=== PATIENT | male | born 1955 | race Caucasian/White ===

== ENCOUNTER 2017-07-19 10:26 | Inpatient (IN) | payer OTHER ==
[~2017-07-19] VITALS: Ht 170.2 cm; Wt 106.0 kg
[2017-07-19] VITALS (15 sets, daily range): BP systolic 146–203; BP diastolic 75–95; PULSE 57–72; RESP 13–24; TEMP 97.9–98.9; O2SAT 91–98
[2017-07-19] MEDS ORDERED: NITROGLYCERIN 0.4 MG SL 25 TABS/BTL SL ONE (11:00)
[2017-07-19] MEDS ORDERED: ASPIRIN 81 MG CHEW TAB PO ONE (11:00)
[2017-07-19] MEDS ORDERED: SODIUM CHLORIDE 0.9% FLUSH 10 ML FLUSH IVF PRN (11:00)
--- NOTE | 2017-07-19 11:26 | RADRPT ---
EXAM DATE/TIME: 07/19/2017 11:21 [place] COMPARISON: No previous studies available for comparison. INDICATIONS : Chest pain. MEDICAL HISTORY : Hypertension. SURGICAL HISTORY : None. ENCOUNTER: Initial ACUITY: 1 day PAIN SCORE: 6/10 LOCATION: Bilateral chest FINDINGS: A single view of the chest demonstrates the lungs to be symmetrically aerated without evidence of mas s, infiltrate or effusion. The cardiomediastinal contours are unremarkable. Osseous structures are intact. CONCLUSION: Normal examination for a patient of this age. Mendez Romero MD on July 19, 2017 at 11:24 Board Certified Radiologist. This report was verified electronically.
[2017-07-19 11:47] LABS: AUTOMATED NEUTROPHIL # 3.9 TH/MM3 (1.8-7.7); BASOPHIL % 0.5 % (0.0-2.0); EOSINOPHIL # 0.3 TH/MM3 (0-0.4); EOSINOPHIL % 4.6 % (0.0-4.0); HEMATOCRIT 50.4 % (39.0-51.0); HEMO FLAGS DIFF FINAL; LYMPH % 34.3 % (9.0-44.0); LYMPHOCYTE # 2.5 TH/MM3 (1.0-4.8); MEAN CELL VOLUME 92.1 FL (80.0-100.0); MEAN CORPUSCULAR HEMOGLOBIN 31.7 PG (27.0-34.0); MEAN CORPUSCULAR HGB CONC 34.4 % (32.0-36.0); MONO % 6.9 % (0.0-8.0); NEUT % 53.7 % (16.0-70.0); PLATELET COUNT 144 TH/MM3 (150-450); RED BLOOD COUNT 5.47 MIL/MM3 (4.50-5.90); RED CELL DISTRIBUTION WIDTH 13.7 % (11.6-17.2); WHITE BLOOD COUNT 7.3 TH/MM3 (4.0-11.0)
[2017-07-19 11:57] LABS: APTT (PATIENT) 29.1 SEC (24.3-30.1)
[2017-07-19 12:12] LABS: BICARBONATE 25.9 MEQ/L (21.0-32.0); MAGNESIUM 2.3 MG/DL (1.5-2.5); POTASSIUM 4.3 MEQ/L (3.5-5.1)
[2017-07-19] MEDS ORDERED: NITROGLYCERIN-D5W 50 MG/250 ML 250 ML IV PRN (12:30)
[2017-07-19] MEDS ORDERED: HEPARIN SODIUM - IV 10,000 UNITS/10 ML VIAL IV ONE (12:30)
[2017-07-19] MEDS ORDERED: HEPARIN-D5W 25,000 U/250 ML 250 ML IV ONE (12:30)
--- NOTE | 2017-07-19 12:34 | PD ---
HPI Chief Complaint: Chest Pain Time Seen by Provider: 10:55 Travel History International Travel<30 days: No Contact w/Intl Traveler<30days: No Traveled to known affect area: No History of Present Illness HPI 62-year-old male came to the emergency room with history of substernal chest pain on and off for past couple days but worse since yesterday. There is also associated shortness of breath. Patient took his blood pressure last night and it was more than 200 systolic. His gave him one of her clonidine which made him feel better but then the symptoms came back and this time patient decided to go to see his primary care in [place] and be checked out. They did an EKG in [place] which looked different than his EKG from the past which was from 2010. Patient's blood pressure upon arrival was in the 200 systolic. He said his discomfort in his chest was subxiphoid with no radiation and 1-2 out of 10. Currently he was not short of breath. He is not on any medications and he is a heavy smoker. Pain comes even at rest. No associated syncopal episode, nausea vomiting or diaphoresis. Patient was seen at [place] where an EKG was done which looked different than his old EKG from 2010 and they called EMS and sent him to the emergency room. [facility] Past Medical History Narrative Medical List of his past medical, surgical, social and family history is reviewed from the nursing note. High Cholesterol: Yes Hypertension: Yes Tetanus Vaccination: < 5 Years Influenza Vaccination: No Past Surgical History Surgical History: No Previous Surgery Social History Alcohol Use: Yes Tobacco Use: Yes Substance Use: Yes (THC) Allergies-Medications (Allergen,Severity, Reaction): Coded Allergies: ampicillin (Verified Allergy, Unknown, 07/19/17) penicillin G (Verified Allergy, Unknown, 07/19/17) Comments List of his allergies reviewed from the nursing note. Reported Meds & Prescriptions Reported Meds & Active Scripts Active No Active Prescriptions or Reported Medications Narrative Medication List of his home medications reviewed from the nursing note. Review of Systems Except as stated in HPI: all other systems reviewed are Neg Cardiovascular: Positive: Chest Pain or Discomfort, Dyspnea on exertion Physical Exam Narrative GENERAL: Awake, alert, obese, moderate distress SKIN: Focused skin assessment warm/dry. HEAD: Atraumatic. Normocephalic. EYES: Pupils equal and round. No scleral icterus. No injection or drainage. ENT: No nasal bleeding or discharge. Mucous membranes pink and moist. NECK: Trachea midline. No JVD. CARDIOVASCULAR: Regular rate and rhythm. No murmur appreciated. RESPIRATORY: No accessory muscle use. Clear to auscultation. Breath sounds equal bilaterally. GASTROINTESTINAL: Abdomen soft, non-tender, nondistended. Hepatic and splenic margins not palpable. MUSCULOSKELETAL: No obvious deformities. No clubbing. No cyanosis. No edema. NEUROLOGICAL: Awake and alert. No obvious cranial nerve deficits. Motor grossly within normal limits. Normal speech. PSYCHIATRIC: Appropriate mood and affect; insight and judgment normal. Data Data Last Documented VS Vital Signs Date Time Temp Pulse Resp B/P (MAP) Pulse Ox O2 Delivery O2 Flow Rate FiO2 07/19/17 10:45 64 16 184/85 (118) 97 Nasal Cannula 2.00 07/19/17 10:28 98.7 Orders Orders Electrocardiogram (07/19/17 10:55) Basic Metabolic Panel (Bmp) (07/19/17 10:55) Ckmb (Isoenzyme) Profile (07/19/17 10:55) Complete Blood Count With Diff (07/19/17 10:55) Magnesium (Mg) (07/19/17 10:55) Prothrombin Time / Inr (Pt) (07/19/17 10:55) Act Partial Throm Time (Ptt) (07/19/17 10:55) Troponin I (07/19/17 10:55) Chest, Single Ap (07/19/17 10:55) Ecg Monitoring (07/19/17 10:55) Bilateral Bp Monitoring (07/19/17 10:55) Iv Access Insert/Monitor (07/19/17 10:55) Oximetry (07/19/17 10:55) Oxygen Administration (07/19/17 10:55) Aspirin Chew (Aspirin Chew) (07/19/17 11:00) Sodium Chloride 0.9% Flush (Ns Flush) (07/19/17 11:00) Nitroglycerin Sl (Nitrostat Sl) (07/19/17 11:00) Heparin Infusion CAITLYN.Q1H (07/19/17 12:20) Heparin Inj (Heparin Inj) (07/19/17 12:30) Heparin Inj (Heparin Inj) (07/19/17 18:30) Heparin Inj (Heparin Inj) (07/19/17 18:30) Heparin-D5w 25,000 U/250 Ml (Heparin-D5w (07/19/17 12:30) Act Partial Throm Time (Ptt) (07/19/17 12:20) Cbc No Diff, Includes Plts (07/19/17 12:20) Cbc No Diff, Includes Plts (07/22/17 06:00) Act Partial Throm Time (Ptt) (07/19/17 19:20) Occult Blood (Hemoccult) Stool (07/19/17 12:20) Nitroglycerin-D5w 50 Mg/250 Ml (Nitrogly (07/19/17 12:30) Admit To Inpatient (07/19/17 ) Vital Signs (Adult) CAITLYN.Q4H (07/19/17 12:39) Subsea Engineer / Telemetry CAITLYN.Q8H (07/19/17 12:39) Diet Npo (07/19/17 Lunch) Resp Oxygen David C Titrat 1-4 L (07/19/17 ) Sodium Chloride 0.9% Flush (Ns Flush) (07/19/17 12:45) Sodium Chloride 0.9% Flush (Ns Flush) (07/19/17 21:00) Inpatient Certification (07/19/17 ) Labs Laboratory Tests Test 07/19/17 11:00 White Blood Count 7.3 TH/MM3 Red Blood Count 5.47 MIL/MM3 Hemoglobin 17.3 GM/DL Hematocrit 50.4 % Mean Corpuscular Volume 92.1 FL Mean Corpuscular Hemoglobin 31.7 PG Mean Corpuscular Hemoglobin Concent 34.4 % Red Cell Distribution Width 13.7 % Platelet Count 144 TH/MM3 Mean Platelet Volume 7.6 FL Neutrophils (%) (Auto) 53.7 % Lymphocytes (%) (Auto) 34.3 % Monocytes (%) (Auto) 6.9 % Eosinophils (%) (Auto) 4.6 % Basophils (%) (Auto) 0.5 % Neutrophils # (Auto) 3.9 TH/MM3 Lymphocytes # (Auto) 2.5 TH/MM3 Monocytes # (Auto) 0.5 TH/MM3 Eosinophils # (Auto) 0.3 TH/MM3 Basophils # (Auto) 0.0 TH/MM3 CBC Comment DIFF FINAL Differential Comment Prothrombin Time 11.0 SEC Prothromb Time International Ratio 1.0 RATIO Activated Partial Thromboplast Time 29.1 SEC Blood Urea Nitrogen 15 MG/DL Creatinine 0.95 MG/DL Random Glucose 89 MG/DL Calcium Level 8.7 MG/DL Magnesium Level 2.3 MG/DL Sodium Level 138 MEQ/L Potassium Level 4.3 MEQ/L Chloride Level 106 MEQ/L Carbon Dioxide Level 25.9 MEQ/L Anion Gap 6 MEQ/L Estimat Glomerular Filtration Rate 80 ML/MIN Total Creatine Kinase 72 U/L Troponin I 0.13 NG/ML MDM Medical Decision Making Medical Screen Exam Complete: Yes Emergency Medical Condition: Yes Medical Record Reviewed: Yes Interpretation(s) Twelve-lead EKG was reviewed by me. Normal sinus rhythm, normal axis, anterior lateral T wave inversions which is new since 2011. Heart rate of 61 bpm. Differential Diagnosis ACS, non-STEMI, unstable angina, congestive heart failure Narrative Course 12:41 PM patient was initially given 2 baby aspirin and a sublingual nitroglycerin. Blood test results came back and troponin is elevated. I started him on heparin bolus and drip. However the blood pressure still elevated and I have started him on nitro drip as well. Patient should be admitted to the CICU. I discussed the case with the residents who have accepted the admission. I also discussed the case with Dr. Argueta from cardiology who is here evaluating the patient at this point. Critical Care Narrative Aggregate critical care time was 45 minutes. Time to perform other separately billable procedures was not included in the critical care time. My time did not include minutes spent treating any other patients simultaneously or on activities that did not directly contribute to the patient's treatment. The services I provided to this patient were to treat and/or prevent clinically significant deterioration that could result in: Non-STEMI, hypertensive emergency, heparin bolus and drip, nitro drip I provided critical care services requiring my management, as noted below: Chart data review, documentation time, medication orders and management, vital sign assessments/reviewing monitor data, ordering and reviewing lab tests, ordering and interpreting/reviewing x-rays and diagnostic studies, care of the patient and discussion of the patient with the admitting physicians. Procedures EKG Prior to Arrival: Yes Physician Communication Physician Communication Dr. Argueta Diagnosis Primary Impression: Non-STEMI (non-ST elevated myocardial infarction) Additional Impression: Hypertensive emergency Admitting Information Admitting Physician Requests: Admit Scripts No Active Prescriptions or Reported Meds Teresa Alexis MD Jul 19, 2017 12:34
[2017-07-19] MEDS ORDERED: SODIUM CHLORIDE 0.9% FLUSH 10 ML FLUSH IV FLUSH PRN ×3 (12:45→19:45)
[2017-07-19] MEDS ORDERED: METOPROLOL TARTRATE 25 MG TAB PO STA (12:53)
[2017-07-19] MEDS ORDERED: IOHEXOL 350 MG/ML 50 ML BTL (for Cath Lab) OTHER ONE (13:00)
[2017-07-19] MEDS ORDERED: HEPARIN SODIUM - IV 10,000 UNITS/10 ML VIAL IV PUSH ONE (13:00)
[2017-07-19] MEDS ORDERED: IOHEXOL 350 MG/ML 100 ML BTL (for Cath Lab) OTHER ONE (13:00)
[2017-07-19] MEDS ORDERED: amLODIPine BESYLATE 5 MG TAB PO ONE ×2 (13:00→19:45)
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
[2017-07-19] MEDS ORDERED: ACETAMINOPHEN 325 MG TAB PO PRN ×2 (13:30→19:45)
[2017-07-19] MEDS ORDERED: ALPRAZolam 0.25 MG TAB PO PRN (13:30)
[2017-07-19] MEDS ORDERED: ONDANSETRON HCL 4 MG/2 ML VIAL IV PUSH PRN (13:30)
[2017-07-19] MEDS ORDERED: DOCUSATE SODIUM 100 MG CAP PO PRN (13:30)
[2017-07-19] MEDS ORDERED: MORPHINE SULFATE 4 MG/ML INJ IV PUSH PRN ×2 (13:30→19:45)
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
[2017-07-19] MEDS: NITROGLYCERIN-D5W 50 MG/250 ML 250 ML IV PRN (14:00)
[2017-07-19] MEDS ORDERED: HEPARIN-D5W 25,000 U/250 ML 250 ML IV PRN (14:00)
[2017-07-19] MEDS ORDERED: HEPARIN-NS/PF INJ 1,000 ML ONE (16:57)
[2017-07-19] MEDS ORDERED: VERAPAMIL HCL 5 MG/2 ML VIAL ONE ×3 (17:01→18:47)
[2017-07-19] MEDS ORDERED: NITROGLYCERIN INJ 5 ML ONE (17:02)
[2017-07-19 17:08] LABS: BLOOD, URINE NEG (NEG); GLUCOSE,URINE NEG (NEG); KETONE, URINE NEG (NEG); NITRITE,URINE NEG (NEG); URINE COLOR LIGHT-YELLOW (YELLW/STRAW)
[2017-07-19 17:09] LABS: COMMENT (UR) CULT NOT INDICATED; CULTURE IF INDICATED CULT NOT INDICATED
[2017-07-19] MEDS ORDERED: MIDAZOLAM HCL 2 MG/2 ML VIAL ONE ×2 (17:24→18:20)
[2017-07-19] MEDS ORDERED: CHLORHEXIDINE GLUCONATE 2 % 1 PACK (2 CLOTHS)(extra cloths) TOPICAL PRN (17:30)
[2017-07-19] MEDS ORDERED: HEPARIN SODIUM - IV 10,000 UNITS/10 ML VIAL IV PRN ×2 (18:30)
[2017-07-19] MEDS ORDERED: TICAGRELOR 90 MG TAB PO ONE (18:34)
[2017-07-19] MEDS ORDERED: MORPHINE SULFATE 8 MG/ML INJ ONE ×2 (18:45→19:08)
[2017-07-19] MEDS ORDERED: HEPARIN SODIUM - IV 10,000 UNITS/10 ML VIAL IV PUSH PRN ×2 (19:00)
[2017-07-19] MEDS ORDERED: HEPARIN SODIUM - IV 10,000 UNITS/10 ML VIAL ONE (19:03)
--- NOTE | 2017-07-19 19:30 | CATHPROC ---
[email or web address] HIS Report Study Information Study Number Admission Scheduled Start Study Start [id number] Jul 19 2017 12:47PM 07/19/2017 Jul 19 2017 5:04PM [place] Service Cardiac Catheterization Admit Source Facility Department Emergency department [facility] - Vacuum Frame Operator Physician and Clinical Staff Initial Andre Bailey Post Partum Nurse Bonita Stroud BSRN Recorder Beth Forte,DARLENE Scrub Frantz Salgado RCIS(BS) Procedures Performed Procedure Location (Site) Vessel Name Coronary Angiograms LCA Left Coronary Coronary Angiograms RCA Right Coronary Coronary Angiograms LAD Prox Left Coronary Coronary Angiograms RCA Prox Right Coronary Drug Eluting Inflatio LAD Prox Left Coronary Drug Eluting Inflatio RCA Prox Right Coronary L Heart Cath LV Gram-hand inj. LV LV Ventricle PTCA LAD Prox Left Coronary PTCA ADD ON'S Wire insertion Radial (right) Radial Art. Equipment Time Mine Wedge Sawyer Description Size Mfg Part Number Used/Scraped WIRE, BALANCE MIDDLEWEIGHT [id number] 18:27 [employer] 190CM Used 190CM ([facility]) *[id number] TRANSDUCER, TRUWAVE [id number] 17:18 BUTT SERRANO * Used W/STOCKCOCK *[id number] [phone] *[id number] 534-545T *5526244 534-518T *7771820 534-618T *8851557 534-523T *6341322 534-623T *[id number] PIGTAIL ANG. 145 INFINITI [phone] CATHETER *[id number] 17:18 MALLINCKRODT SYRINGE, ANGIOMAT 150ML 150ML *[id number] Used 2SUB [id number] 17:18 [employer] PACK, CCL CUSTOM * Used *[id number] 17:18 IZEA SUPPORT, ARTERIAL ADULT 47287 *6105835 Used [id number] 17:18 [employer] PACER PEN, SKIN DUAL W/ RULER * Used *4774874 [id number] 18:31 [employer] BALLOON, 2.5 X 20MM EUPHORA 20MM Used *[id number] [id number] 19:02 [employer] STENT, 4.0 12MM JOSUÉ 4.0 12MM Used *3738084 [id number] 18:38 [employer] STENT, 4.0 22MM JOSUÉ 4.0 22MM Used *[id number] WIRE, COUGAR LS 190CM [id number] 18:18 [employer] 190CM Used (HYDROPHILIC) *[id number] [id number] 18:07 [employer]IC/AVE EBU 3.5 Z2 GUIDE CATHETER FR 6 Used *8947560 [id number] 18:23 [employer] 30 KANDICE INDEFLATOR Used *0154088 BAND, RADIAL COMPRESSION TR [id number] 19:09 [employer] 29CM Used LARGE 29 *[id number] [id number] 17:18 [employer] WIRE, EXCHANGE 260CM 3MMJ 260CM Used *8648744 [id number] 17:18 NAMIC MANIFOLD, 4 PORT * Used *[id number] 17:18 [employer]COMED OMNIPAQUE, 350 MG, 100ML 100ML [id number] Used 18:00 NYCOMED OMNIPAQUE, 350 MG, 150ML 150ML [id number] Used [id number] 17:18 [employer] BLANKET,WARM AIR CCL * Used *7386489 17:18 [employer] JELCO NEEDLE 4056 *3829099 Used SHEATH, FR6 TRANSRADIAL [id number] 17:18 TER[employer] Hunt FR 6 Used SLENDER 10CM *[id number] Equipment Model, Serial, Lot Number and Expiration Data Description Model Number Serial Number Lot Number Expiration Date STENT, 4.0 12MM JOSUÉ [id number] 04-21-2019 STENT, 4.0 22MM JOSUÉ [id number] 03-01-2019 History: Allergies Allergy Reaction ampicillin penicillin G History: Risk Factors Family History of Hypertension Dyslipidemia Previous [place] Previous Heart Failure Premature CAD Yes Yes No No No Prior Valve Prior PCI Prior CABG Surgery No No No Cerebrovascular Peripheral Artery Chronic Lung On Dialysis Diabetes Disease Disease Disease No Yes No No No History: Risk Factors Selection Items Current Smoker History: Symptoms/Diagnosis Selection Items Chest pain SOB History: Stress Tests Stress or Imaging Studies Performed No History: Other Disease Selection Items HTN Stroke History: Other Current Smoker Method Packs a Day Years Used Pack Years Yes Cigarettes 2 50 100 Regular Diet Yes Labs Hgb (g/dl) Hct (%) WBC (l/cumm) Platelets (thousands) 11.60-17.00 35.00-51.00 4.00-11.00 150.00-450.00 17.3 50.4 7.3 144 Glucose (mg/dl) BUN (mg/dl) Creatinine (mg/dl) BUN:Creatinine (1:x) 74.00-106.00 7.00-18.00 0.50-1.30 10.00-20.00 89 15 0.9 16.7 Na (meq/l) K (meq/l) 136.00-145.00 3.50-5.10 138 4.3 INR (PTT:PT) 0.90-1.10 1 Troponin I (ng/ml) CPK (u/l) CPK-MB (ng/ML) 0.02-0.05 26.00-308.00 0.50-3.60 0.13 72 Not Drawn Medication Medication Total Dose (Bolus/Oral) Medication Total Dosage/Unit 1% XYLOCAINE 5 mL BRILINTA 180 mg FENTANYL 100 mcg HEPARIN 8000 units MORPHINE 11 mg NTG (IC) 200 mcg RADIAL COCKTAIL 15 mL (Bolus) VERSED 3 mg Medications (Bolus/Oral) Medication Time Given Dosage/Unit Administered By Reason VERSED 07/19/2017 5:41:34 PM 2 mg Rittenour, Bonita 2 mg VERSED given in lab by Bonita Stroud BSRN in Left Antecubital via Peripheral IV. Ordered by Andre Argueta. 1% XYLOCAINE 07/19/2017 5:43:53 PM 5 mL Andre Argueta 5 mL 1% XYLOCAINE given in lab by Andre Argueta in Right Wrist via Subcutaneous. Ordered by Jesi Argueta. FENTANYL 07/19/2017 5:45:00 PM 50 mcg Rittenour, Bonita 50 mcg FENTANYL given in lab by Bonita Stroud BSRN in Left Antecubital via Peripheral IV. Ordered by Andre Argueta. Ntg 200mcg Verapamil 2.5mg Heparin RADIAL COCKTAIL 07/19/2017 5:58:39 PM 5 mL (Bolus) Andre Argueta 3000U 5 mL (Bolus) RADIAL COCKTAIL given in lab by Frantz Salgado RCIS(BS) in Right Radial via Radial. Us ing [Solution Name]. Ordered by Andre Argueta. Reason: Ntg 200mcg Verapamil 2.5mg. HEPARIN 07/19/2017 6:17:34 PM 5000 units Andre Argueta 5000 units HEPARIN given in lab by Andre Argueta in Left Antecubital via Peripheral IV. Ordered by Andre Sharpe. Ntg 200mcg Verapamil 2.5mg Heparin RADIAL COCKTAIL 07/19/2017 6:19:02 PM 5 mL (Bolus) Andre Argueta 2000U 5 mL (Bolus) RADIAL COCKTAIL given in lab by Andre Argueta in Right Wrist via Radial. Using [Solution Name]. Ordered by Andre Argueta. Reason: Ntg 200mcg Verapamil 2.5mg. VERSED 07/19/2017 6:21:11 PM 1 mg Rittenour, Bonita 1 mg VERSED given in lab by Bonita Stroud BSRN via Peripheral IV. Ordered by Andre Argueta. HEPARIN 07/19/2017 6:31:44 PM 1000 units Rittenour, Bonita 1000 units HEPARIN given in lab by Bonita Stroud BSRN in Left Antecubital via Peripheral IV. Orde red by Andre Argueta. NTG (IC) 07/19/2017 6:34:49 PM 200 mcg Andre Argueta 200 mcg NTG (IC) given in lab by Andre Argueta via Intra-coronary. Ordered by Andre Argueta. FENTANYL 07/19/2017 6:41:05 PM 50 mcg Franklyntenmeg, Bonita 50 mcg FENTANYL given in lab by Bonita Stroud BSRN in Left Antecubital via Peripheral IV. Ordered by Andre Argueta. MORPHINE 07/19/2017 6:46:01 PM 4 mg Rittenour, Bonita 4 mg MORPHINE given in lab by Bonita Stroud BSRN in Left Antecubital via Peripheral IV. Ordered b y Andre Argueta. Ntg 200mcg Verapamil 2.5mg Heparin RADIAL COCKTAIL 07/19/2017 6:50:01 PM 5 mL (Bolus) Andre Argueta 2000U 5 mL (Bolus) RADIAL COCKTAIL given in lab by Andre Argueta in Right Radial via Radial. Using [Solutio n Name]. Ordered by Andre Argueta. Reason: Ntg 200mcg Verapamil 2.5mg. BRILINTA 07/19/2017 6:51:30 PM 180 mg Rittenour, Bonita 180 mg BRILINTA given in lab by Bonita Stroud BSRN via Oral. Ordered by Andre Argueta. MORPHINE 07/19/2017 6:53:16 PM 4 mg Rittenour, Bonita 4 mg MORPHINE given in lab by Bonita Stroud BSRN in Left Antecubital via Peripheral IV. Ordered Andre Patel. HEPARIN 07/19/2017 7:03:52 PM 2000 units Bonita Stroud 2000 units HEPARIN given in lab by Bonita Stroud BSRN in Left Antecubital via Peripheral IV. Orde red by Andre Argueta. MORPHINE 07/19/2017 7:09:13 PM 3 mg Bonita Stroud 3 mg MORPHINE given in lab by Bonita Stroud BSRN in Left Antecubital via Peripheral IV. Ordered Andre Patel. Medication (Drip) Medication Time Given Dosage/Unit Concentration/Unit Diluent (ml) Solution NITROGLYCERIN DRIP 07/19/2017 5:05:05 PM 15 mcg/min 50 mg 250 D5W Patient arrived on 15 mcg/min NITROGLYCERIN DRIP in Left Antecubital via Peripheral IV. Pump/Drip Yusuf w = 4.5 ml/hr using D5W with a concentration of 50 mg in 250 ml. NITROGLYCERIN DRIP 07/19/2017 6:48:55 PM 40 mcg/min 50 mg 250 D5W 40 mcg/min NITROGLYCERIN DRIP given in lab by Bonita Stroud BSRN in Left Antecubital via Peripher al IV. Pump/Drip Flow = 12 ml/hr using D5W with a concentration of 50 mg in 250 ml. Ordered by Andre Argueta. gtt increased per Initial Case Assessment Cardiovascular HR Rhythm NIBP Chest Pain 65 regular 167/85 0 Edema Present Skin color Skin None Normal Warm Dry Circulatory - Right Pulses Dorsalis Pedis Posterior Tibial Femoral Brachial Radial 2 2 2 2 2 Scale (0,1,2,3,4,d) Scale (0,1,2,3,4,d) Circulatory - Lower Extremities Color Lower Right Color Lower Left Normal Normal Neurological State Oriented to time-place- Alert Moves all extremities person Respiration - General Respiration Rate SpO2 (%) O2 (lpm) (B/min) 15 98 2 Final Case Assessment Cardiovascular HR Rhythm NIBP Chest Pain 66 regular 179/96 0 Edema Present Skin color Skin None Normal Warm Dry Circulatory - Right Pulses Dorsalis Pedis Posterior Tibial Femoral Brachial Radial 2 2 2 2 2 Scale (0,1,2,3,4,d) Scale (0,1,2,3,4,d) Neurological State Oriented to time-place- Alert Moves all extremities person Respiration - General Respiration Rate SpO2 (%) O2 (lpm) (B/min) 14 92 2 Chronological Log Time Study Chronological Log 17:04:00 Patient arrived via Bed. 17:04:01 Patient Name, D.O.B, / Armband Verified By R.N. 17:04:02 Consent signed by the physician and the patient and verified by the Vacuum Frame Operator staff. 17:04:03 Verbal Stimulation=2 Physical Stimulation=2 Airway=2 Respiration=2 TOTAL=8. (0=absent, 1=li mited, 2=present) 17:04:41 Presedation assessment performed by Vacuum Frame Operator RN. 17:04:59 Patient has been NPO for More than 6Hrs. 17:05:00 Skin Breakdown-none per pt 17:05:02 Patient Warmer Placed on the Table. 17:05:03 Alana Prominences Protected 17:05:04 A # 18 IV was noted in the Antecubital (left). Grade = 0 Patient arrived on 15 mcg/min NITROGLYCERIN DRIP in Left Antecubital via Peripheral IV. Pump/Dr ip Flow = 4.5 ml/hr 17:05:05 using D5W with a concentration of 50 mg in 250 ml. 17:05:06 A # 20 IV was noted in the Upper Arm (left). Grade = 0 17:05:06 History and physical on the chart or being dictated. Assessment: Initial Case, HR=65 BPM, Rhythm=regular, RZFM=034/85 mmhg, Chest Pain=0, Edema=None , Color=Normal, Skin = Warm, Dry Right Pulses: Rafi Ped=2, Post Tib=2, Femoral=2, Brachial=2, Radial=2 17:05:07 Lower Right Extremities: Color=Normal Lower Left Extremities: Color=Normal Neurological: State=Alert, Ox3, MACIEL Respiration: Resp=15 B/min, SpO2=98 %, O2=2 lpm Vitals capture started with the following parameters, Patient=Adult, Interval=5 min, Initial Pr vjiarl=784 mmHg, 17:13:44 Deflation Rate=5 mmHg, Cuff placed on Left Arm 17:15:27 HR=67 bpm, QDXW=803/94 mmhg, Resp=13 B/min, Pain=0, Juan M=10, Melo=2 17:19:29 HR=62 bpm, LAZD=909/85 mmhg, Resp=18 B/min, Pain=0, Juan M=10, Melo=2 17:24:24 HR=62 bpm, XREF=241/99 mmhg, SpO2=98.0 %, Resp=15 B/min, Pain=0, Juan M=10, Melo=2 17:29:29 HR=66 bpm, YKZK=484/95 mmhg, SpO2=99.0 %, Resp=18 B/min, Pain=0, Juan M=10, Melo=2 17:34:32 HR=62 bpm, CUXG=051/93 mmhg, SpO2=98.0 %, Resp=11 B/min, Pain=0, Juan M=10, Melo=2 17:39:29 HR=61 bpm, GZME=104/98 mmhg, SpO2=98.0 %, Resp=13 B/min, Pain=0, Juan M=10, Melo=2 Time Out. Correct patient, correct procedure, correct physician, power injector loaded with con trast with surgical team 17:40:49 present. Time Out Concurred by MD and individual staff in procedure. 17:41:34 2 mg VERSED given in lab by Bonita Stroud BSRN in Left Antecubital via Peripheral IV. O rdered by Andre Argueta. 17:43:49 Pressure channel 1 zeroed. 17:43:52 Case Start 17:43:53 5 mL 1% XYLOCAINE given in lab by Andre Argueta in Right Wrist via Subcutaneous. Ordered by Andre Argueta. 17:44:30 HR=64 bpm, UTID=474/88 mmhg, SpO2=97.0 %, Resp=18 B/min, Pain=0, Juan M=10, Melo=2 50 mcg FENTANYL given in lab by Bonita Stroud BSRN in Left Antecubital via Peripheral IV. O rdered by Kendall, 17:45:00 Andre. 17:49:29 HR=62 bpm, HJVH=116/90 mmhg, SpO2=92.0 %, Resp=20 B/min, Pain=0, Juan M=10, Melo=2 17:54:28 Reference ECG taken 17:54:32 HR=60 bpm, BPQN=971/85 mmhg, SpO2=91.0 %, Resp=16 B/min, Pain=0, Juan M=10, Melo=2 17:57:38 Access site was Right Radial Artery. 5 mL (Bolus) RADIAL COCKTAIL given in lab by Frantz Salgado RCIS(YAZMIN) in Right Radial via Radi al. Using [Solution 17:58:39 Name]. Ordered by Andre Argueta. Reason: Ntg 200mcg Verapamil 2.5mg. A JL 3.5 INFINITI CATHETER FR 5 was advanced over a wire. OMNIPAQUE, 350 MG, 150ML 150ML was us ed for 17:59:44 injections. 18:00:12 HR=63 bpm, QGSU=921/89 mmhg, SpO2=96.0 %, Resp=19 B/min, Pain=0, Juan M=10, Melo=2 18:03:06 The LCA was injected and visualized at various angles. OMNIPAQUE, 350 MG, 150ML 150ML used . 18:05:13 HR=60 bpm, ULNZ=092/80 mmhg, SpO2=92.0 %, Resp=16 B/min, Pain=0, Juan M=10, Melo=2 18:06:01 Catheter was removed A JR 5.0 INFINITI CATHETER FR 5 was advanced over a wire. OMNIPAQUE, 350 MG, 150ML 150ML was us ed for 18:06:10 injections. Recorded Pressure: LV, HR=60, Condition=Condition 1 18:07:43 (Left Ventricle) LV 152/11/19 18:07:57 The LV was manually injected with 10 cc's and visualized. OMNIPAQUE, 350 MG, 150ML 150ML us ed. Recorded Pressure: LV, Ao, HR=61, Condition=Condition 1 18:08:28 (Left Ventricle) LV 152/14/22, (Aorta) Ao 152/66/105 Recorded Pressure: Ao, HR=61, Condition=Condition 1 18:09:13 (Aorta) Ao 156/75/107 18:09:36 HR=60 bpm, ALIJ=671/88 mmhg, SpO2=95.0 %, Resp=17 B/min, Pain=0, Juan M=10, Melo=2 18:13:11 Catheter was removed A AL 1 INFINITI CATHETER FR 5 was advanced over a wire. OMNIPAQUE, 350 MG, 150ML 150ML was used for 18:13:20 injections. 18:14:33 HR=63 bpm, GFEA=963/87 mmhg, SpO2=98.0 %, Resp=14 B/min, Pain=0, Juan M=10, Melo=2 18:15:12 The RCA was injected and visualized at various angles. OMNIPAQUE, 350 MG, 150ML 150ML used . 18:17:11 Catheter was removed 18:17:34 5000 units HEPARIN given in lab by Andre Argueta in Left Antecubital via Peripheral IV. Ord ered by Andre Argueta. 5 mL (Bolus) RADIAL COCKTAIL given in lab by Andre Argueta in Right Wrist via Radial. Using [So lution Name]. Ordered 18:19:02 by Andre Argueta. Reason: Ntg 200mcg Verapamil 2.5mg. 18:20:04 HR=62 bpm, RRRP=971/90 mmhg, SpO2=98.0 %, Resp=16 B/min, Pain=0, Juan M=10, Melo=2 A EBU 3.5 Z2 GUIDE CATHETER FR 6 was advanced over a wire. OMNIPAQUE, 350 MG, 150ML 150ML was u sed for 18:20:23 injections. 18:21:11 1 mg VERSED given in lab by Bonita Stroud BSRN via Peripheral IV. Ordered by Lacy Argueta. 18:22:53 OMNIPAQUE, 350 MG, 150ML 150ML and 30 KANDICE INDEFLATOR added. 18:23:15 Activated Clotting Time Drawn 18:24:33 HR=64 bpm, TEQX=356/86 mmhg, SpO2=93.0 %, Resp=20 B/min, Pain=0, Juan M=10, Melo=2 18:28:26 ACT (Normal Range 90-180) = 285 18:29:34 HR=59 bpm, NKYR=042/82 mmhg, SpO2=97.0 %, Resp=18 B/min, Pain=0, Juan M=10, Melo=2 18:29:46 Interventional wire has crossed the lesion 1000 units HEPARIN given in lab by Bonita Stroud BSRN in Left Antecubital via Peripheral IV . Ordered by Kendall, 18:31:44 Andre. A BALLOON, 2.5 X 20MM EUPHORA 20MM was inserted over WIRE, BALANCE MIDDLEWEIGHT 190CM (YOLANDE) 19 0CM 18:31:57 via the LAD Prox. A BALLOON, 2.5 X 20MM EUPHORA 20MM over a WIRE, BALANCE MIDDLEWEIGHT 190CM (YOLANDE) 190CM in the LAD 18:32:53 Prox was inflated using a 30 KANDICE INDEFLATOR at 14 kandice for 25 sec. A BALLOON, 2.5 X 20MM EUPHORA 20MM over a WIRE, BALANCE MIDDLEWEIGHT 190CM (YOLANDE) 190CM in the LAD 18:33:39 Prox was inflated using a 30 KANDICE INDEFLATOR at 14 kandice for 20 sec. 18:34:22 Balloon Removed. 18:34:35 HR=59 bpm, AUYM=468/92 mmhg, SpO2=98.0 %, Resp=15 B/min, Pain=0, Juan M=10, Melo=2 18:34:49 200 mcg NTG (IC) given in lab by Andre Argueta via Intra-coronary. Ordered by Andre Argueta . A STENT, 4.0 22MM JOSUÉ 4.0 22MM was advanced through a EBU 3.5 Z2 GUIDE CATHETER FR 6 over a WI RE, 18:37:39 BALANCE MIDDLEWEIGHT 190CM (YOLANDE) 190CM. A STENT, 4.0 22MM JOSUÉ 4.0 22MM was deployed using a 30 KANDICE INDEFLATOR at 14 atmospheres for 20 seconds in 18:39:01 the LAD Prox. 18:39:21 The LAD Prox was injected and visualized at various angles. contrast used. 18:39:38 Delivery device removed 18:40:15 HR=60 bpm, XRNU=311/93 mmhg, SpO2=97.0 %, Resp=13 B/min, Pain=0, Juan M=10, Melo=2 50 mcg FENTANYL given in lab by Bonita Stroud BSRN in Left Antecubital via Peripheral IV. O rdered by Kendall, 18:41:05 Andre. 18:43:30 Wire removed 18:45:28 Nitro gtt increased to 20mcg/min per MD 18:45:32 HR=61 bpm, RVZW=378/115 mmhg, SpO2=97.0 %, Resp=10 B/min, Pain=0, Juan M=10, Melo=2 4 mg MORPHINE given in lab by Bonita Stroud BSRN in Left Antecubital via Peripheral IV. Ord ered by Kendall, 18:46:01 Andre. 18:48:05 Catheter was removed 40 mcg/min NITROGLYCERIN DRIP given in lab by Bonita Stroud BSRN in Left Antecubital via Pe ripheral IV. 18:48:55 Pump/Drip Flow = 12 ml/hr using D5W with a concentration of 50 mg in 250 ml. Ordered by Andre Bradshaw. gtt increased per MD 18:49:44 HR=65 bpm, TWOY=875/112 mmhg, SpO2=96.0 %, Resp=14 B/min, Pain=0, Juan M=10, Melo=2 5 mL (Bolus) RADIAL COCKTAIL given in lab by Andre Argueta in Right Radial via Radial. Using [S olution Name]. 18:50:01 Ordered by Andre Argueta. Reason: Ntg 200mcg Verapamil 2.5mg. 18:51:30 180 mg BRILINTA given in lab by Bonita Stroud BSRN via Oral. Ordered by Andre Argueta. 4 mg MORPHINE given in lab by Bonita Stroud BSRN in Left Antecubital via Peripheral IV. Ord ered by Kendall, 18:53:16 Andre. 18:54:45 HR=63 bpm, LSNV=448/101 mmhg, SpO2=92.0 %, Resp=17 B/min, Pain=0, Juan M=10, Melo=2 A AL .75 GUIDE CATHETER FR 6 was advanced over a wire. OMNIPAQUE, 350 MG, 150ML 150ML was used for 18:54:52 injections. 18:57:22 Activated Clotting Time Drawn 18:58:20 The RCA Prox was injected and visualized at various angles. OMNIPAQUE, 350 MG, 150ML 150ML used. 18:59:42 HR=59 bpm, AXJZ=796/90 mmhg, SpO2=89.0 %, Resp=11 B/min, Pain=0, Juan M=10, Melo=2 18:59:59 A WIRE, CRYSTAL LS 190CM (HYDROPHILIC) 190CM was inserted via Radial (right). 19:00:46 Interventional wire has crossed the lesion A STENT, 4.0 12MM JOSUÉ 4.0 12MM was advanced through a AL .75 GUIDE CATHETER FR 6 over a WIRE, COUGAR LS 19:02:19 190CM (HYDROPHILIC) 190CM. 19:02:38 ACT (Normal Range 90-180) = 279 A STENT, 4.0 12MM JOSUÉ 4.0 12MM was deployed using a 30 KANDICE INDEFLATOR at 16 atmospheres for 40 seconds in 19:02:50 the RCA Prox. 2000 units HEPARIN given in lab by Bonita Stroud BSRN in Left Antecubital via Peripheral IV . Ordered by Kendall, 19:03:52 Powell. 19:04:18 Delivery device removed 19:05:02 The RCA was injected and visualized at various angles. contrast used. 19:05:24 HR=68 bpm, JYSE=233/90 mmhg, SpO2=91.0 %, Resp=13 B/min, Pain=0, Juan M=10, Melo=2 19:05:35 Wire removed 19:06:43 Catheter was removed 19:06:56 Case End Radial Compression Device Used. 13 mLs of air placed in BAND, RADIAL COMPRESSION TR LARGE 29 29 CM. Affected 19:08:33 hand 92 % O2 saturation. 3 mg MORPHINE given in lab by Bonita Stroud BSRN in Left Antecubital via Peripheral IV. Ord ered by Kendall, 19:09:13 Powell. 19:10:21 HR=72 bpm, KDPC=157/102 mmhg, SpO2=93.0 %, Resp=18 B/min, Pain=0, Juan M=10, Melo=2 19:13:07 Report called to floor. Spoke with DARLENE Campbell 19:14:41 HR=61 bpm, WZGV=239/96 mmhg, SpO2=92.0 %, Resp=11 B/min, Pain=0, Juan M=10, Melo=2 Assessment: Final Case, HR=66 BPM, Rhythm=regular, HAFD=437/96 mmhg, Chest Pain=0, Edema=None, Color=Normal, Skin = Warm, Dry 19:15:01 Right Pulses: Rafi Ped=2, Post Tib=2, Femoral=2, Brachial=2, Radial=2 Neurological: State=Alert, Ox3, MACIEL Respiration: Resp=14 B/min, SpO2=92 %, O2=2 lpm 19:15:36 No case complications noted. 19:15:37 Cine recording checked. 19:15:39 Bedside Report will be given. 19:15:47 A Left Heart Cath was performed. 19:19:42 HR=62 bpm, UATN=121/91 mmhg, Resp=15 B/min, Pain=0, Juan M=10, Melo=2 19:25:57 [facility] - Contrast Media Used In Study Contrast Total Opened (mL) Total Used (mL) Total Wasted (mL) Omnipaque 300 250 50 End Study - Maximum Contrast Load Max Contrast Load (mL) 694.4 End Study - Radiation Exposure Fluoro Time (minutes) 22.9 End Study - Patient Disposition Complications Transferred To Interventional Outcome No Critical Care Bed successful
[2017-07-19] MEDS: SODIUM CHLOR 0.9% 1000 ML INJ 1,000 ML IV SCH (19:32)
[2017-07-19] MEDS ORDERED: BACITRACIN OINT 0.9 GM PKT TOP ONE (19:45)
[2017-07-19] MEDS ORDERED: oxyCODONE/ACETAMINOPHEN 10 MG/325 MG TAB PO PRN (19:45)
[2017-07-19] MEDS ORDERED: ONDANSETRON HCL 4 MG/2 ML VIAL IVP PRN (19:45)
[2017-07-19] MEDS ORDERED: oxyCODONE/ACETAMINOPHEN 5 MG/325 MG TAB PO PRN (19:45)
[2017-07-19] MEDS ORDERED: MISC INFORMATION XX ONE (19:45)
--- NOTE | 2017-07-19 19:53 | MA ---
cc: MICHELLE SNYDER DATE: 07/19/2017 PROCEDURE PERFORMED Right radial arterial access, coronary angiography, left ventriculography, left heart catheterization, balloon angioplasty and stenting of the proximal left anterior descending artery, stenting of the proximal right coronary artery. DESCRIPTION OF PROCEDURE Patient was brought to the cardiac clinical lab assistant in the fasting state. The right wrist and right groin were prepped and draped in sterile fashion. Using ultrasound guidance a Terumo slender sheath was inserted in the right renal artery. Left coronary angiography was performed using a left 3.5 Kalli catheter. Right coronary angiography was unsuccessful with a right 4 Kalli but less successful with a left one Amplatz. Prior to this the right Kalli was also used for left ventriculography on pullback. I used a 6-Omani EBU guiding catheter to engage the left main, IV heparin was given. I crossed the LAD lesion with a BMW wire. I predilated with a 2.5 millimeter balloon and then stented it with a 4.0 x 22 millimeter Resolute stent. I inflated to 14 atmospheres. Angiography demonstrated an excellent result in the LAD. There was subacute closure of the first septal forest logistics manager branch. These usually come back and do not require intervention. I medicated his chest pain with morphine. I did angiography in multiple views showing a stent result was satisfactory. I then removed the guiding catheter and went in with an AL 0.75 left guiding catheter. I crossed the right coronary artery lesion with a CougarWire and then stented it with a 4.0 x 12 millimeter Resolute stent at 16 atmospheres. Angiography demonstrates an excellent result with no thrombus or dissection. The guiding catheter was then removed. The patient was loaded with Brilinta during the case. Will continue on aspirin 81 mg and Brilinta b.i.d., 90 mg. The sheath was removed with the Terumo band placed. There were no complications. FINDINGS HEMODYNAMICS: Left ventricular pressure is 152/14 with an end-diastolic pressure of 22. The aortic pressure is 156/75, over 107. There was no gradient during pullback from left ventricle to the aorta. LEFT VENTRICULOGRAPHY: Left ventriculography shows an ejection fraction about 50% with focal apical akinesis. CORONARY ANGIOGRAPHY: The left main coronary artery appears normal. It trifurcates into the LAD and ramus intermediate branch and the circumflex vessel. The LAD has a 99% eccentric ulcerated long proximal stenosis. The diagonal branch comes off distal to this and appears normal. The ramus intermediate branch has 40% proximal disease. Circumflex artery appears normal. The right coronary artery is dominant with a discrete 75% proximal stenosis. RESULTS OF INTERVENTION Following stenting of the proximal LAD, 0% residual stenosis has been achieved. There is subacute closure of the septal forest logistics manager branch which will probably come back spontaneously, it's on its own. Following stenting of the proximal right coronary artery, 0% residual stenosis has been achieved. CONCLUSION 1. Overall preserved LV function with apical akinesis to the non-STEMI. 2. Critical two-vessel coronary disease. 3. Successful drug-eluting stent implantation of both vessels. 4. The patient noted to be hypertensive and will need further adjustment of his blood pressure meds. MD CECILIA Lane/SHANDRA /7:19 PM /7:28 PM
[2017-07-19 20:40] LABS: HEMATOCRIT 50.6 % (39.0-51.0); MEAN CELL VOLUME 92.8 FL (80.0-100.0); MEAN CORPUSCULAR HEMOGLOBIN 31.4 PG (27.0-34.0); MEAN CORPUSCULAR HGB CONC 33.9 % (32.0-36.0); PLATELET COUNT 148 TH/MM3 (150-450); RED BLOOD COUNT 5.45 MIL/MM3 (4.50-5.90); RED CELL DISTRIBUTION WIDTH 13.4 % (11.6-17.2); REVIEW FLAG FINAL; WHITE BLOOD COUNT 10.1 TH/MM3 (4.0-11.0)
[2017-07-19 20:52] LABS: APTT (PATIENT) 73.4 SEC (24.3-30.1)
[2017-07-19] MEDS ORDERED: SODIUM CHLORIDE 0.9% FLUSH 10 ML FLUSH IV FLUSH SCH (21:00)
[2017-07-19] MEDS: SODIUM CHLORIDE 0.9% FLUSH 10 ML FLUSH IV FLUSH SCH ×2 (21:11)
[2017-07-19] MEDS: METOPROLOL TARTRATE 25 MG TAB PO SCH (21:11)
[2017-07-20] VITALS (15 sets, daily range): BP systolic 145–163; BP diastolic 73–80; PULSE 58–80; RESP 14–23; TEMP 98.4–98.8; O2SAT 94–100
[2017-07-20 02:27] LABS: AUTOMATED NEUTROPHIL # 8.4 TH/MM3 (1.8-7.7); BASOPHIL % 0.4 % (0.0-2.0); EOSINOPHIL # 0.3 TH/MM3 (0-0.4); EOSINOPHIL % 2.4 % (0.0-4.0); HEMATOCRIT 45.9 % (39.0-51.0); HEMO FLAGS DIFF FINAL; LYMPH % 19.4 % (9.0-44.0); LYMPHOCYTE # 2.3 TH/MM3 (1.0-4.8); MEAN CELL VOLUME 91.4 FL (80.0-100.0); MEAN CORPUSCULAR HEMOGLOBIN 32.5 PG (27.0-34.0); MEAN CORPUSCULAR HGB CONC 35.6 % (32.0-36.0); MONO % 6.6 % (0.0-8.0); NEUT % 71.2 % (16.0-70.0); PLATELET COUNT 139 TH/MM3 (150-450); RED BLOOD COUNT 5.02 MIL/MM3 (4.50-5.90); RED CELL DISTRIBUTION WIDTH 13.3 % (11.6-17.2); WHITE BLOOD COUNT 11.7 TH/MM3 (4.0-11.0)
[2017-07-20 02:50] LABS: ALT (GPT) 21 U/L (12-78); ANION GAP 4 MEQ/L (5-15); AST (GOT) 43 U/L (15-37); BICARBONATE 28.8 MEQ/L (21.0-32.0); BLOOD UREA NITROGEN 10 MG/DL (7-18); CHLORIDE 105 MEQ/L (98-107); GLOMERULAR FILTRATION RATE 82 ML/MIN (>89); POTASSIUM 4.3 MEQ/L (3.5-5.1); SODIUM (NA) 138 MEQ/L (136-145)
[2017-07-20 03:30] LABS: ALKALINE PHOSPHATASE 54 U/L (45-117); CREATINE KINASE 333 U/L (39-308); HDL CHOLESTEROL 32.7 MG/DL (40.0-60.0); LDL CHOLESTEROL 147 MG/DL (0-99); TOTAL BILIRUBIN ADULT 0.6 MG/DL (0.2-1.0)
[2017-07-20 03:58] LABS: CKMB 43.8 NG/ML (0.5-3.6)
[2017-07-20] MEDS: CHLORHEXIDINE GLUCONATE 2 % 1 PACK (2 CLOTHS)(taper/protocol) TOPICAL SCH (04:00)
[2017-07-20] MEDS: SODIUM CHLOR 0.9% 1000 ML INJ 1,000 ML IV SCH (05:34)
[2017-07-20] MEDS: amLODIPine BESYLATE 5 MG TAB PO SCH (08:59)
[2017-07-20] MEDS: ATORVASTATIN 40 MG TAB PO SCH (08:59)
[2017-07-20] MEDS: METOPROLOL TARTRATE 25 MG TAB PO SCH ×2 (08:59→21:13)
[2017-07-20] MEDS: ASPIRIN 81 MG CHEW TAB PO SCH ×2 (08:59→09:00)
[2017-07-20] MEDS: SODIUM CHLORIDE 0.9% FLUSH 10 ML FLUSH IV FLUSH SCH ×4 (09:00→21:13)
--- NOTE | 2017-07-20 09:32 | PD.CARD.PN ---
Subjective Subjective Remarks Chest sore. No other complaints Objective Medications Current Medications Medications (Trade) Dose Ordered Sig/Gracie Route Start Time Stop Time Status Last Admin (Norvasc) 5 mg DAILY PO 07/20/17 09:00 07/20/17 08:59 (Lopressor) 25 mg Q12HR PO 07/19/17 21:00 07/20/17 08:59 Nitroglycerin/ Dextrose 250 ml @ 1.5 mls/hr TITRATE PRN IV 07/19/17 14:00 07/19/17 14:00 (Lipitor) 40 mg DAILY PO 07/20/17 09:00 07/20/17 08:59 (Aspirin Chew) 81 mg DAILY PO 07/20/17 09:00 07/20/17 08:59 (NS Flush) 2 ml BID IV FLUSH 07/19/17 21:00 07/20/17 09:00 (NS Flush) 2 ml UNSCH PRN IV FLUSH 07/19/17 13:30 (Morphine Inj) 2 mg Q30M PRN IV PUSH 07/19/17 13:30 (Tylenol) 650 mg Q6H PRN PO 07/19/17 13:30 (Colace) 100 mg BID PRN PO 07/19/17 13:30 (Xanax) 0.25 mg Q8H PRN PO 07/19/17 13:30 Miscellaneous Information Patient in critical care unit? Ass... [id number] .XX 07/19/17 17:30 (Chlorhexidine 2% Cloth) 3 pack DAILY@04 TOPICAL 07/20/17 04:00 07/24/17 04:01 07/20/17 04:00 (Chlorhexidine 2% Cloth) 3 pack UNSCH PRN TOPICAL 07/19/17 17:30 07/24/17 17:17 (Tylenol) 325 mg Q4H PRN PO 07/19/17 19:45 (Percocet 5-325 Mg) 1 tab Q4H PRN PO 07/19/17 19:45 (Percocet 10-325 Mg) 1 tab Q4H PRN PO 07/19/17 19:45 (Morphine Inj) 3 mg Q30M PRN IV PUSH 07/19/17 19:45 (Zofran Inj) 4 mg Q6H PRN IVP 07/19/17 19:45 (Aspirin Chew) 81 mg DAILY PO 07/20/17 09:00 (Brilinta) 90 mg BID PO 07/20/17 09:00 (NS Flush) 2 ml UNSCH PRN IV FLUSH 07/19/17 19:45 (NS Flush) 2 ml BID IV FLUSH 07/19/17 21:00 07/20/17 09:00 (Prinivil) 10 mg DAILY PO 07/20/17 09:30 UNV Vital Signs / I&O Vital Signs Date Time Temp Pulse Resp B/P (MAP) Pulse Ox O2 Delivery O2 Flow Rate FiO2 07/20/17 07:39 94 Nasal Cannula 2.00 07/20/17 06:00 63 07/20/17 04:00 59 07/20/17 04:00 98.5 59 148/73 (98) 100 07/20/17 02:00 80 07/20/17 00:00 58 07/20/17 00:00 98.4 58 18 162/77 (105) 100 07/19/17 22:00 57 07/19/17 22:00 57 07/19/17 20:00 98.7 65 21 181/81 (114) 91 07/19/17 20:00 65 07/19/17 20:00 65 07/19/17 16:45 63 14 146/75 (98) 96 07/19/17 16:45 63 07/19/17 16:45 63 07/19/17 16:30 64 07/19/17 16:30 64 24 152/75 (100) 96 07/19/17 16:30 64 07/19/17 16:15 64 19 153/84 (107) 95 07/19/17 16:15 64 07/19/17 16:15 64 07/19/17 16:06 96 Nasal Cannula 2.00 07/19/17 16:00 64 13 163/85 (111) 97 07/19/17 16:00 64 07/19/17 16:00 64 07/19/17 15:45 66 18 170/92 (118) 97 07/19/17 15:45 66 07/19/17 15:45 64 170/92 07/19/17 15:45 66 07/19/17 14:15 66 16 156/78 (104) 98 Nasal Cannula 2.00 07/19/17 14:15 97.9 66 16 156/78 (104) 98 Nasal Cannula 2.00 07/19/17 14:02 69 203/89 07/19/17 14:00 67 07/19/17 14:00 67 07/19/17 14:00 67 186/92 07/19/17 14:00 98.9 67 17 174/89 (117) 97 07/19/17 13:45 67 14 186/92 (123) 97 07/19/17 12:56 98 Nasal Cannula 2.00 07/19/17 12:30 72 16 178/82 (114) 98 Nasal Cannula 2.00 07/19/17 12:30 98 Nasal Cannula 2.00 07/19/17 10:45 64 16 184/85 (118) 97 Nasal Cannula 2.00 07/19/17 10:45 67 16 99 Nasal Cannula 07/19/17 10:28 98.7 71 18 203/95 (131) 98 Room Air I/O 07/19/17 07/19/17 07/19/17 07/20/17 07/20/17 07/20/17 07:00 15:00 23:00 07:00 15:00 23:00 Intake Total 0 ml 240 ml Output Total 250 ml 1200 ml Balance -250 ml -960 ml Intake Oral 0 ml 240 ml Output Urine Total 250 ml 1200 ml Stool Total 0 ml # Voids 1 Physical Exam Alert Chest: diminished BS CV S1S2 RRR Abd soft Ext no edema. Right wrist OK. Laboratory Laboratory Tests Test 07/19/17 11:00 07/19/17 14:00 07/19/17 14:20 07/19/17 20:13 White Blood Count 7.3 TH/MM3 10.1 TH/MM3 Red Blood Count 5.47 MIL/MM3 5.45 MIL/MM3 Hemoglobin 17.3 GM/DL 17.1 GM/DL Hematocrit 50.4 % 50.6 % Mean Corpuscular Volume 92.1 FL 92.8 FL Mean Corpuscular Hemoglobin 31.7 PG 31.4 PG Mean Corpuscular Hemoglobin Concent 34.4 % 33.9 % Red Cell Distribution Width 13.7 % 13.4 % Platelet Count 144 TH/MM3 148 TH/MM3 Mean Platelet Volume 7.6 FL 7.5 FL Neutrophils (%) (Auto) 53.7 % Lymphocytes (%) (Auto) 34.3 % Monocytes (%) (Auto) 6.9 % Eosinophils (%) (Auto) 4.6 % Basophils (%) (Auto) 0.5 % Neutrophils # (Auto) 3.9 TH/MM3 Lymphocytes # (Auto) 2.5 TH/MM3 Monocytes # (Auto) 0.5 TH/MM3 Eosinophils # (Auto) 0.3 TH/MM3 Basophils # (Auto) 0.0 TH/MM3 CBC Comment DIFF FINAL Differential Comment Prothrombin Time 11.0 SEC Prothromb Time International Ratio 1.0 RATIO Activated Partial Thromboplast Time 29.1 SEC 73.4 SEC Blood Urea Nitrogen 15 MG/DL Creatinine 0.95 MG/DL Random Glucose 89 MG/DL Calcium Level 8.7 MG/DL Magnesium Level 2.3 MG/DL Sodium Level 138 MEQ/L Potassium Level 4.3 MEQ/L Chloride Level 106 MEQ/L Carbon Dioxide Level 25.9 MEQ/L Anion Gap 6 MEQ/L Estimat Glomerular Filtration Rate 80 ML/MIN Total Creatine Kinase 72 U/L Troponin I 0.13 NG/ML 0.20 NG/ML Urine Color LIGHT-YELLOW Urine Turbidity CLEAR Urine pH 5.0 Urine Specific [place] 1.009 Urine Protein NEG mg/dL Urine Glucose (UA) NEG mg/dL Urine Ketones NEG mg/dL Urine Occult Blood NEG Urine Nitrite NEG Urine Bilirubin NEG Urine Urobilinogen LESS THAN 2.0 MG/DL Urine Leukocyte Esterase NEG Urine RBC LESS THAN 1 /hpf Urine WBC 2 /hpf Microscopic Urinalysis Comment CULT NOT INDICATED Urine Opiates Screen NEG Urine Barbiturates Screen NEG Urine Amphetamines Screen NEG Urine Benzodiazepines Screen NEG Urine Cocaine Screen NEG Urine Cannabinoids Screen NEG Nasal Screen MRSA (PCR) MRSA NOT DETECTED Test 07/20/17 02:17 White Blood Count 11.7 TH/MM3 Red Blood Count 5.02 MIL/MM3 Hemoglobin 16.3 GM/DL Hematocrit 45.9 % Mean Corpuscular Volume 91.4 FL Mean Corpuscular Hemoglobin 32.5 PG Mean Corpuscular Hemoglobin Concent 35.6 % Red Cell Distribution Width 13.3 % Platelet Count 139 TH/MM3 Mean Platelet Volume 7.4 FL Neutrophils (%) (Auto) 71.2 % Lymphocytes (%) (Auto) 19.4 % Monocytes (%) (Auto) 6.6 % Eosinophils (%) (Auto) 2.4 % Basophils (%) (Auto) 0.4 % Neutrophils # (Auto) 8.4 TH/MM3 Lymphocytes # (Auto) 2.3 TH/MM3 Monocytes # (Auto) 0.8 TH/MM3 Eosinophils # (Auto) 0.3 TH/MM3 Basophils # (Auto) 0.0 TH/MM3 CBC Comment DIFF FINAL Differential Comment Blood Urea Nitrogen 10 MG/DL Creatinine 0.93 MG/DL Random Glucose 97 MG/DL Total Protein 6.4 GM/DL Albumin 3.4 GM/DL Calcium Level 8.0 MG/DL Alkaline Phosphatase 54 U/L Aspartate Amino Transf (AST/SGOT) 43 U/L Alanine Aminotransferase (ALT/SGPT) 21 U/L Total Bilirubin 0.6 MG/DL Direct Bilirubin 0.1 MG/DL Sodium Level 138 MEQ/L Potassium Level 4.3 MEQ/L Chloride Level 105 MEQ/L Carbon Dioxide Level 28.8 MEQ/L Anion Gap 4 MEQ/L Estimat Glomerular Filtration Rate 82 ML/MIN Total Creatine Kinase 333 U/L Creatine Kinase MB 43.8 NG/ML Creatine Kinase MB % 13.2 % Troponin I 9.84 NG/ML Triglycerides Level 290 MG/DL Cholesterol Level 238 MG/DL LDL Cholesterol 147 MG/DL HDL Cholesterol 32.7 MG/DL Cholesterol/HDL Ratio 7.27 RATIO Imaging Last 24 hours Impressions Chest X-Ray 07/19/17 1055 Signed Impressions: Service Date/Time: Wednesday, July 19, 2017 11:21 - CONCLUSION: Normal examination for a patient of this age. Mendez Romero MD Assessment and Plan Problem List: (1) Non-STEMI (non-ST elevated myocardial infarction) ICD Codes: I21.4 - Non-ST elevation (NSTEMI) myocardial infarction Status: Acute (2) 2-vessel coronary artery disease ICD Codes: I25.10 - Atherosclerotic heart disease of [place] coronary artery without angina pectoris (3) Stented coronary artery ICD Codes: Z95.5 - Presence of coronary angioplasty implant and graft (4) COPD (chronic obstructive pulmonary disease) ICD Codes: J44.9 - Chronic obstructive pulmonary disease, unspecified (5) Morbid obesity ICD Codes: E66.01 - Morbid (severe) obesity due to excess calories (6) Hypertensive emergency ICD Codes: I16.1 - Hypertensive emergency Status: Acute Plan: add lisinopril 10mg daily Assessment and Plan Keep today. Probable DC in AM Andre Argueta MD Jul 20, 2017 09:32
[2017-07-20] MEDS: LISINOPRIL 10 MG TAB PO SCH (11:43)
[2017-07-20] MEDS: TICAGRELOR 90 MG TAB PO SCH ×2 (11:44→21:12)
--- NOTE | 2017-07-20 13:22 | HHI.FPPN ---
Subjective Remarks Patient states that he is doing well today. He has no complaints, said that he is having a little bit of soreness in his chest. No shortness of breath, no fevers or chills, no abdominal pain, no nausea or vomiting, no diarrhea or constipation. He is having no pain at his cath site. He would like to be home by the time [facility] this weekend (Tamera Mcgarry MD R1) Objective Vitals Vital Signs Date Time Temp Pulse Resp B/P (MAP) Pulse Ox O2 Delivery O2 Flow Rate FiO2 07/20/17 07:39 94 Nasal Cannula 2.00 07/20/17 06:00 63 07/20/17 04:00 59 07/20/17 04:00 98.5 59 148/73 (98) 100 07/20/17 02:00 80 07/20/17 00:00 58 07/20/17 00:00 98.4 58 18 162/77 (105) 100 07/19/17 22:00 57 07/19/17 22:00 57 07/19/17 20:00 98.7 65 21 181/81 (114) 91 07/19/17 20:00 65 07/19/17 20:00 65 07/19/17 16:45 63 14 146/75 (98) 96 07/19/17 16:45 63 07/19/17 16:45 63 07/19/17 16:30 64 07/19/17 16:30 64 24 152/75 (100) 96 07/19/17 16:30 64 07/19/17 16:15 64 19 153/84 (107) 95 07/19/17 16:15 64 07/19/17 16:15 64 07/19/17 16:06 96 Nasal Cannula 2.00 07/19/17 16:00 64 13 163/85 (111) 97 07/19/17 16:00 64 07/19/17 16:00 64 07/19/17 15:45 66 18 170/92 (118) 97 07/19/17 15:45 66 07/19/17 15:45 64 170/92 07/19/17 15:45 66 07/19/17 14:15 66 16 156/78 (104) 98 Nasal Cannula 2.00 07/19/17 14:15 97.9 66 16 156/78 (104) 98 Nasal Cannula 2.00 07/19/17 14:02 69 203/89 07/19/17 14:00 67 07/19/17 14:00 67 07/19/17 14:00 67 186/92 07/19/17 14:00 98.9 67 17 174/89 (117) 97 07/19/17 13:45 67 14 186/92 (123) 97 I/O 07/19/17 07/19/17 07/19/17 07/20/17 07/20/17 07/20/17 06:59 14:59 22:59 06:59 14:59 22:59 Intake Total 0 ml 240 ml Output Total 250 ml 1200 ml Balance -250 ml -960 ml Intake Oral 0 ml 240 ml Output Urine Total 250 ml 1200 ml Stool Total 0 ml # Voids 1 (Tamera Mcgarry MD R1) Result Diagram: 07/20/1721607/20/17216 Imaging Last Impressions Chest X-Ray 07/19/17 1055 Signed Impressions: Service Date/Time: Wednesday, July 19, 2017 11:21 - CONCLUSION: Normal examination for a patient of this age. Mendez Romero MD Objective Remarks GENERAL: Well-nourished, well-developed obese male, laying in bed, in no acute distress. SKIN: Warm and dry. HEAD: Normocephalic. EYES: No scleral icterus. No injection or drainage. CARDIOVASCULAR: Regular rate and rhythm without murmurs, gallops, or rubs. RESPIRATORY: Distant breath sounds equal bilaterally. No accessory muscle use. GASTROINTESTINAL: Abdomen soft, obese non-tender, nondistended. EXTREMITIES: No cyanosis, or edema. Bandage on right wrist. NEUROLOGICAL: Awake, alert. Non-focal. (Tamera Mcgarry MD R1) A/P Assessment and Plan 62-year-old male with significant CAD history to include hypertension and hyperlipidemia who presents with chest pain concerning for cardiac etiology. EKG showing T-wave inversions in V1 through V4 but no FABIO or STD. Differential diagnosis includes unstable angina or STEMI given troponin 0.13 on admission. (Tamera Mcgarry MD R1) Attending Attestation THIS CASE WAS DISCUSSED IN DETAIL WITH THE RESIDENT PHYSICIANS Dr Hernandez,Dr Mullins, Dr Poe and Dr Calzado. PATIENT WAS INTERVIEWED AND EXAMINED. I HAVE REVIEWED THE RECORD AND AGREE WITH THE ABOVE NOTE AND PLAN OF CARE WAS DISCUSSED. I HAVE AUTHORIZED THE ORDERS (Monroe Casanova MD) Problem List: (1) Non-STEMI (non-ST elevated myocardial infarction) ICD Codes: I21.4 - Non-ST elevation (NSTEMI) myocardial infarction Status: Acute Plan: Cardiac catheterization performed on 07/19 showing critical two-vessel coronary disease. There was successful drug-eluting stent implantation of both vessels. * ED treatments: Nitroglycerin sublingual, aspirin 162 mg 1, labs to include CBC, cardiac enzymes, CMP, electrolytes, EKG ordered. Cardiology was consulted in ED. Heparin drip and nitroglycerin drips were initiated in ED. Metoprolol 25 mg 1, amlodipine 5 mg 1. * Admit to inpatient * Cardiology will continue management with catheterization planned for this afternoon via transradial approach given obesity * Close monitoring in [facility] or [facility] * We'll add A1c and lipid profile, but atorvastatin 40mg daily to be started empirically in addition to aspirin 81 mg daily * We will continue to trend cardiac enzymes and EKGs * Add urine drug screen * Further management as determined by cardiology recommendations * add Lisinopril 10mg daily on 07/20 * probable DC in AM (2) Hypertensive emergency ICD Codes: I16.1 - Hypertensive emergency Status: Acute Plan: He was noted to have hypertensive emergency on admission. BP 184/85 at approximately 11 AM with repeat 203/89 at 1400. One-time doses of metoprolol and amlodipine given as above. Patient is placed on a nitroglycerin drip to improve chest pain, will also affect BP. * Continue to monitor vital signs closely * Patient also to get nitroglycerin sublingual as needed * Will continue on beta angie and calcium channel nagie while inpatient and upon discharge * Given other CAD risk factors likely, will add A1c and lipid profile * Lisinopril 10mg po qD added by Cardiology on 07/20 (3) Fluids/Electrolytes/Nutrition/Prophylaxis Status: Acute Plan: Fluids: NPO, possibly MIVF after procedure if indicated Electrolytes: monitor and replete as needed Nutrition: NPO DVT Prophylaxis: Early ambulation. Heparin gtt. initiated in ED. GI Prophylaxis: None indicated (Tamera Mcgarry MD R1) Tamera Mcgarry MD R1 Jul 20, 2017 13:22 Monroe Casanova MD Jul 20, 2017 18:47
--- NOTE | 2017-07-20 13:48 | EKG ---
Date Performed: 07/20/2017 Time Performed: 05:39:28 PTAGE: 62 years EKG: Sinus rhythm . Ant/septal and lateral T wave changes may be due to myocardial ischemia Abnormal ECG PREVIOUS TRACING : 07/19/2017 20.02 DOCTOR: Jose Mckeon Interpretating Date/Time 07/20/2017 13:43:15
[2017-07-20] MEDS: NITROGLYCERIN-D5W 50 MG/250 ML 250 ML IV PRN (14:00)
--- NOTE | 2017-07-20 14:02 | EKG ---
Date Performed: 07/19/2017 Time Performed: 20:02:55 PTAGE: 62 years EKG: SINUS BRADYCARDIA MODERATE T-WAVE ABNORMALITY, CONSIDER ANTEROLATERAL ISCHEMIA ABNORMAL ECG PREVIOUS TRACING : 07/19/2017 10.46 DOCTOR: Jose Mckeon Interpretating Date/Time 07/20/2017 13:56:17
--- NOTE | 2017-07-20 14:26 | EKG ---
Date Performed: 07/19/2017 Time Performed: 10:46:28 PTAGE: 62 years EKG: Sinus rhythm ST DEVIATION AND MODERATE T-WAVE ABNORMALITY, CONSIDER ANTERIOR ISCHEMIA ABNORMAL ECG NO PREVIOUS TRACING DOCTOR: Jose Mckeon Interpretating Date/Time 07/20/2017 14:20:01
[2017-07-20 15:13] LABS: HEMOGLOBIN A1a 0.9 %; HEMOGLOBIN A1b 1.1 %; HEMOGLOBIN Ao 85.3 %; HEMOGLOBIN F 0.8 %; HEMOGLOBIN LA1C 2.1 %; HEMOGLOBIN P3 3.7 %
[2017-07-21] VITALS: BP 152/71; PULSE 70; RESP 20; TEMP 98.6; O2SAT 95
[2017-07-21] MEDS: CHLORHEXIDINE GLUCONATE 2 % 1 PACK (2 CLOTHS)(taper/protocol) TOPICAL SCH (03:47)
[2017-07-21 04:00] VITALS: BP 145/67; PULSE 72; RESP 18; TEMP 98.4; O2SAT 97
[2017-07-21 08:00] VITALS: BP 118/77; PULSE 83; PULSE 86; RESP 18; TEMP 99.1; O2SAT 96
[2017-07-21] MEDS: ASPIRIN 81 MG CHEW TAB PO SCH ×2 (09:00→09:06)
[2017-07-21] MEDS: amLODIPine BESYLATE 5 MG TAB PO SCH (09:03)
[2017-07-21] MEDS: ATORVASTATIN 40 MG TAB PO SCH (09:04)
[2017-07-21] MEDS: TICAGRELOR 90 MG TAB PO SCH (09:05)
[2017-07-21] MEDS: LISINOPRIL 10 MG TAB PO SCH (09:05)
[2017-07-21] MEDS: METOPROLOL TARTRATE 25 MG TAB PO SCH (09:05)
[2017-07-21 09:31] VITALS: O2SAT 96
[2017-07-21 09:39] LABS: HEMATOCRIT 50.5 % (39.0-51.0); MEAN CELL VOLUME 91.4 FL (80.0-100.0); MEAN CORPUSCULAR HEMOGLOBIN 31.9 PG (27.0-34.0); MEAN CORPUSCULAR HGB CONC 34.9 % (32.0-36.0); PLATELET COUNT 146 TH/MM3 (150-450); RED BLOOD COUNT 5.53 MIL/MM3 (4.50-5.90); RED CELL DISTRIBUTION WIDTH 13.5 % (11.6-17.2); WHITE BLOOD COUNT 12.3 TH/MM3 (4.0-11.0)
[2017-07-21 09:40] LABS: HEMO FLAGS AUTO DIFF
--- NOTE | 2017-07-21 10:00 | HHI.FPPN ---
Subjective Remarks Patient was seen and examined this morning. He has no complaints specifically denied chest pain, shortness breath, nausea, vomiting, headaches, blurry vision. He is ambulatory without chest pain or difficulty breathing. He feels ready to go home. He is aware he needs to take his medication as prescribed and his girlfriend was at bedside asked many questions regarding follow-up at the [place]. Objective Vitals Vital Signs Date Time Temp Pulse Resp B/P (MAP) Pulse Ox O2 Delivery O2 Flow Rate FiO2 07/21/17 09:31 96 Nasal Cannula 2.00 07/21/17 08:00 99.1 83 18 118/77 (91) 96 07/21/17 04:34 Nasal Cannula 2.00 07/21/17 04:00 98.4 72 18 145/67 (93) 97 07/21/17 00:10 Nasal Cannula 2.00 07/21/17 00:00 98.6 70 20 152/71 (98) 95 07/20/17 23:07 68 07/20/17 21:26 94 Nasal Cannula 2.00 07/20/17 20:00 98.5 72 20 163/80 (107) 96 07/20/17 20:00 Nasal Cannula 2.00 07/20/17 19:10 97 Nasal Cannula 2.00 07/20/17 18:00 65 07/20/17 16:00 65 07/20/17 16:00 98.7 65 23 154/74 (100) 99 07/20/17 14:00 71 07/20/17 14:00 69 171/84 07/20/17 12:00 98.6 64 14 163/78 (106) 96 07/20/17 12:00 64 07/20/17 10:00 63 I/O 07/20/17 07/20/17 07/20/17 07/21/17 07/21/17 07/21/17 07:00 15:00 23:00 07:00 15:00 23:00 Intake Total 240 ml 900 ml 720 ml Output Total 1200 ml 1725 ml Balance -960 ml -825 ml 720 ml Intake Oral 240 ml 900 ml 720 ml Output Urine Total 1200 ml 1725 ml Stool Total 0 ml 0 ml # Voids 6 6 Result Diagram: 07/21/17 0851 07/20/17 0217 Imaging Last Impressions Chest X-Ray 07/19/17 1055 Signed Impressions: Service Date/Time: Wednesday, July 19, 2017 11:21 - CONCLUSION: Normal examination for a patient of this age. Mendez Romero MD Objective Remarks GENERAL: Well-nourished, well-developed obese male, sitting up in bed comfortably. SKIN: Warm and dry. 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 Atraumatic. EYES: No scleral icterus. No injection or drainage. EOMI. CARDIOVASCULAR: Regular rate and rhythm without murmurs, gallops, or rubs. 2+ pulses in the distal extremities bilaterally. RESPIRATORY: Distant breath sounds equal bilaterally without crackles or wheezes.. No accessory muscle use. GASTROINTESTINAL: Abdomen soft, obese non-tender, nondistended. Normal bowel sounds. EXTREMITIES: No cyanosis, or edema. NEUROLOGICAL: Awake, alert. Non-focal. Appropriate response to questioning. Procedures Cardiac catheterization 07/19 Medications and IVs Last Impressions Chest X-Ray 07/19/17 1055 Signed Impressions: Service Date/Time: Wednesday, July 19, 2017 11:21 - CONCLUSION: Normal examination for a patient of this age. Mendez Romero MD Urinary Catheter: No Vascular Central Line Catheter: No A/P Assessment and Plan 62-year-old male with significant CAD history including hypertension and hyperlipidemia who presented 07/19 with chest pain concerning for cardiac etiology. EKG showing T-wave inversions in V1 through V4 but no FABIO or STD. Troponinemia noted. Patient was taken to catheterization on 07/19 with 2 stents placed and symptomatically he is improved. Clinically stable today, likely discharge today. Discharge Planning Patient likely to be discharged today to home but is pending cardiology clearance Problem List: (1) Non-STEMI (non-ST elevated myocardial infarction) ICD Codes: I21.4 - Non-ST elevation (NSTEMI) myocardial infarction Status: Acute Plan: Cardiac catheterization performed on 07/19 showing critical two-vessel coronary disease. There was successful drug-eluting stent implantation of both vessels. Patient was started on aspirin and Brilinta per cardiology Hypertension noted on admission, continue management with beta angie, SHARON inhibitor has been improving this * ED treatments: Nitroglycerin sublingual, aspirin 162 mg 1, labs to include CBC, cardiac enzymes, CMP, electrolytes, EKG ordered. Cardiology was consulted in ED. Heparin drip and nitroglycerin drips were initiated in ED. Metoprolol 25 mg 1, amlodipine 5 mg 1. * Admit to inpatient * Cardiology will continue management with catheterization planned for this afternoon via transradial approach given obesity * Close monitoring in [facility] or IM * We'll add A1c and lipid profile, but atorvastatin 40mg daily to be started empirically in addition to aspirin 81 mg daily * We will continue to trend cardiac enzymes and EKGs * Add urine drug screen * Further management as determined by cardiology recommendations * add Lisinopril 10mg daily on 07/20 (2) Hypertensive emergency ICD Codes: I16.1 - Hypertensive emergency Status: Resolved Plan: BP 118/77 this morning, will continue to monitor. To be discharged on inpatient regimen and monitored closely as an outpatient. Hospital course: He was noted to have hypertensive emergency on admission. BP 184/85 at approximately 11 AM with repeat 203/89 at 1400. One-time doses of metoprolol and amlodipine given as above. Patient is placed on a nitroglycerin drip to improve chest pain, will also affect BP. * Continue to monitor vital signs closely * Patient also to get nitroglycerin sublingual as needed * Will continue on beta angie and calcium channel angie while inpatient and upon discharge * Given other CAD risk factors likely, will add A1c and lipid profile * Lisinopril 10mg po qD added by Cardiology on 07/20 (3) Fluids/Electrolytes/Nutrition/Prophylaxis Status: Acute Plan: Fluids: PO hydration Electrolytes: monitor and replete as needed Nutrition: NPO DVT Prophylaxis: Early ambulation. Aspirin and Brilinta GI Prophylaxis: None indicated Felisa Mullins MD R2 Jul 21, 2017 10:00
[2017-07-21 10:08] LABS: AST (GOT) 75 U/L (15-37); BICARBONATE 24.6 MEQ/L (21.0-32.0); BLOOD UREA NITROGEN 8 MG/DL (7-18); GLOMERULAR FILTRATION RATE 87 ML/MIN (>89)
[2017-07-21 10:11] LABS: ANION GAP 7 MEQ/L (5-15); CHLORIDE 104 MEQ/L (98-107); POTASSIUM 3.7 MEQ/L (3.5-5.1); SODIUM (NA) 136 MEQ/L (136-145)
[2017-07-21 10:22] LABS: ALKALINE PHOSPHATASE 53 U/L (45-117); ALT (GPT) 29 U/L (12-78); TOTAL BILIRUBIN ADULT 0.9 MG/DL (0.2-1.0)
[2017-07-21 10:27] LABS: BANDS 5 % (0-6); BASOPHILS 1 % (0-2); EOSINOPHILS 1 % (0-4); MYELOCYTES 1 % (0-0); NEUTROPHIL # MANUAL DIFF 9.6 TH/MM3 (1.8-7.7); POLYS (SEG NEUTROPHILS) 72 % (16-70); WBC DIFF SAMPLE 100
[2017-07-21 10:34] LABS: PLATELET ESTIMATE SMEAR NORMAL (NORMAL); PLATELET MORPHOLOGY NORMAL (NORMAL); SCAN/DIFF FINAL DIFF MANUAL
[2017-07-21 12:00] VITALS: BP 147/78; PULSE 73; RESP 18; TEMP 98.4; O2SAT 95
--- NOTE | 2017-07-21 13:38 | PD.CARD.PN ---
Subjective Subjective Remarks Feels good, ready to go home. He has decided he will not smoke any more Objective Medications Current Medications Medications (Trade) Dose Ordered Sig/Gracie Route Start Time Stop Time Status Last Admin (Norvasc) 5 mg DAILY PO 07/20/17 09:00 07/21/17 09:03 (Lopressor) 25 mg Q12HR PO 07/19/17 21:00 07/21/17 09:05 Nitroglycerin/ Dextrose 250 ml @ 1.5 mls/hr TITRATE PRN IV 07/19/17 14:00 07/20/17 14:00 (Lipitor) 40 mg DAILY PO 07/20/17 09:00 07/21/17 09:04 (Aspirin Chew) 81 mg DAILY PO 07/20/17 09:00 07/21/17 09:06 (NS Flush) 2 ml BID IV FLUSH 07/19/17 21:00 07/20/17 09:00 (NS Flush) 2 ml UNSCH PRN IV FLUSH 07/19/17 13:30 (Morphine Inj) 2 mg Q30M PRN IV PUSH 07/19/17 13:30 (Tylenol) 650 mg Q6H PRN PO 07/19/17 13:30 (Colace) 100 mg BID PRN PO 07/19/17 13:30 (Xanax) 0.25 mg Q8H PRN PO 07/19/17 13:30 Miscellaneous Information Patient in critical care unit? Ass... [id number] .XX 07/19/17 17:30 (Chlorhexidine 2% Cloth) 3 pack DAILY@04 TOPICAL 07/20/17 04:00 07/24/17 04:01 07/20/17 04:00 (Chlorhexidine 2% Cloth) 3 pack UNSCH PRN TOPICAL 07/19/17 17:30 07/24/17 17:17 (Tylenol) 325 mg Q4H PRN PO 07/19/17 19:45 (Percocet 5-325 Mg) 1 tab Q4H PRN PO 07/19/17 19:45 (Percocet 10-325 Mg) 1 tab Q4H PRN PO 07/19/17 19:45 (Morphine Inj) 3 mg Q30M PRN IV PUSH 07/19/17 19:45 (Zofran Inj) 4 mg Q6H PRN IVP 07/19/17 19:45 (Aspirin Chew) 81 mg DAILY PO 07/20/17 09:00 (Brilinta) 90 mg BID PO 07/20/17 09:00 07/21/17 09:05 (NS Flush) 2 ml UNSCH PRN IV FLUSH 07/19/17 19:45 (NS Flush) 2 ml BID IV FLUSH 07/19/17 21:00 07/20/17 21:13 (Prinivil) 10 mg DAILY PO 07/20/17 09:30 07/21/17 09:05 Vital Signs / I&O Vital Signs Date Time Temp Pulse Resp B/P (MAP) Pulse Ox O2 Delivery O2 Flow Rate FiO2 07/21/17 12:00 98.4 73 18 147/78 (101) 95 07/21/17 09:31 96 Nasal Cannula 2.00 07/21/17 08:00 86 07/21/17 08:00 99.1 83 18 118/77 (91) 96 07/21/17 08:00 96 07/21/17 04:34 Nasal Cannula 2.00 07/21/17 04:00 98.4 72 18 145/67 (93) 97 07/21/17 00:10 Nasal Cannula 2.00 07/21/17 00:00 98.6 70 20 152/71 (98) 95 07/20/17 23:07 68 07/20/17 21:26 94 Nasal Cannula 2.00 07/20/17 20:00 98.5 72 20 163/80 (107) 96 07/20/17 20:00 Nasal Cannula 2.00 07/20/17 19:10 97 Nasal Cannula 2.00 07/20/17 18:00 65 07/20/17 16:00 65 07/20/17 16:00 98.7 65 23 154/74 (100) 99 07/20/17 14:00 71 07/20/17 14:00 69 171/84 I/O 07/20/17 07/20/17 07/20/17 07/21/17 07/21/17 07/21/17 07:00 15:00 23:00 07:00 15:00 23:00 Intake Total 240 ml 900 ml 720 ml Output Total 1200 ml 1725 ml Balance -960 ml -825 ml 720 ml Intake Oral 240 ml 900 ml 720 ml Output Urine Total 1200 ml 1725 ml Stool Total 0 ml 0 ml # Voids 6 6 Physical Exam Alert Chest: diminished BS, slight whheze CV S1S2 RRR Abd soft Ext no edema. Right wrist OK. Laboratory Laboratory Tests Test 07/21/17 08:51 White Blood Count 12.3 TH/MM3 Red Blood Count 5.53 MIL/MM3 Hemoglobin 17.6 GM/DL Hematocrit 50.5 % Mean Corpuscular Volume 91.4 FL Mean Corpuscular Hemoglobin 31.9 PG Mean Corpuscular Hemoglobin Concent 34.9 % Red Cell Distribution Width 13.5 % Platelet Count 146 TH/MM3 Mean Platelet Volume 7.8 FL CBC Comment AUTO DIFF Differential Total Cells Counted 100 Neutrophils % (Manual) 72 % Band Neutrophils % 5 % Lymphocytes % 18 % Monocytes % 2 % Eosinophils % 1 % Basophils % 1 % Neutrophils # (Manual) 9.6 TH/MM3 Myelocytes 1 % Differential Comment FINAL DIFF MANUAL Platelet Estimate NORMAL Platelet Morphology Comment NORMAL Blood Urea Nitrogen 8 MG/DL Creatinine 0.88 MG/DL Random Glucose 147 MG/DL Total Protein 7.3 GM/DL Albumin 3.7 GM/DL Calcium Level 8.8 MG/DL Alkaline Phosphatase 53 U/L Aspartate Amino Transf (AST/SGOT) 75 U/L Alanine Aminotransferase (ALT/SGPT) 29 U/L Total Bilirubin 0.9 MG/DL Sodium Level 136 MEQ/L Potassium Level 3.7 MEQ/L Chloride Level 104 MEQ/L Carbon Dioxide Level 24.6 MEQ/L Anion Gap 7 MEQ/L Estimat Glomerular Filtration Rate 87 ML/MIN Assessment and Plan Problem List: (1) Non-STEMI (non-ST elevated myocardial infarction) ICD Codes: I21.4 - Non-ST elevation (NSTEMI) myocardial infarction Status: Acute (2) 2-vessel coronary artery disease ICD Codes: I25.10 - Atherosclerotic heart disease of [place] coronary artery without angina pectoris (3) Stented coronary artery ICD Codes: Z95.5 - Presence of coronary angioplasty implant and graft (4) COPD (chronic obstructive pulmonary disease) ICD Codes: J44.9 - Chronic obstructive pulmonary disease, unspecified (5) Morbid obesity ICD Codes: E66.01 - Morbid (severe) obesity due to excess calories (6) Hypertensive emergency ICD Codes: I16.1 - Hypertensive emergency Status: Resolved Assessment and Plan Stable for discharge. No strenuous activity. Heart healthy diet. Continue present meds. OV 2 weeks. Andre Argueta MD Jul 21, 2017 13:38
[2017-07-21] MEDS ORDERED: ASPI81CH25 PO (14:16)
[2017-07-21] MEDS ORDERED: ATOR40TA16 PO (14:16)
[2017-07-21] MEDS ORDERED: METO25TA3 PO (14:16)
[2017-07-21] MEDS ORDERED: AMLO5 PO (14:16)
[2017-07-21] MEDS ORDERED: BRIL90TA PO (14:16)
[2017-07-21] MEDS ORDERED: LISI10TA3 PO (14:16)
--- NOTE | 2017-07-21 14:18 | HHI.DCPOC ---
Discharge Care Plan Diagnosis: (1) Non-STEMI (non-ST elevated myocardial infarction) (2) COPD (chronic obstructive pulmonary disease) (3) Hypertensive emergency (4) Stented coronary artery Goals to Promote Your Health * To prevent worsening of your condition and complications * To maintain your health at the optimal level Directions to Meet Your Goals Take your medications as prescribed Follow your dietary instruction Follow activity as directed Keep your appointments as scheduled Take your immunizations and boosters as scheduled If your symptoms worsen call your PCP, if no PCP go to Urgent Care Center or Emergency Room Smoking is Dangerous to Your Health. Avoid second hand smoke Call the 24-hour hour crisis hotline for domestic abuse at Felisa Mullins MD R2 Jul 21, 2017 14:17
--- NOTE | 2017-07-21 14:25 | HHI.DS ---
Discharge Summary Admission Date Jul 19, 2017 at 12:47 Discharge Date: Jul 21, 2017 Admitting Diagnosis non-STEMI (1) Non-STEMI (non-ST elevated myocardial infarction) Diagnosis: Principal Plan: Cardiac catheterization performed on 07/19 showing critical two-vessel coronary disease. There was successful drug-eluting stent implantation of both vessels. Patient was started on aspirin and Brilinta per cardiology Hypertension noted on admission, continue management with beta angie, SHARON inhibitor has been improving this * ED treatments: Nitroglycerin sublingual, aspirin 162 mg 1, labs to include CBC, cardiac enzymes, CMP, electrolytes, EKG ordered. Cardiology was consulted in ED. Heparin drip and nitroglycerin drips were initiated in ED. Metoprolol 25 mg 1, amlodipine 5 mg 1. * Admit to inpatient * Cardiology will continue management with catheterization planned for this afternoon via transradial approach given obesity * Close monitoring in [facility] or IM * We'll add A1c and lipid profile, but atorvastatin 40mg daily to be started empirically in addition to aspirin 81 mg daily * We will continue to trend cardiac enzymes and EKGs * Add urine drug screen * Further management as determined by cardiology recommendations * add Lisinopril 10mg daily on 07/20 ICD Codes: I21.4 - Non-ST elevation (NSTEMI) myocardial infarction Status: Acute (2) Hypertensive emergency Diagnosis: Principal Plan: BP 118/77 this morning, will continue to monitor. To be discharged on inpatient regimen and monitored closely as an outpatient. Hospital course: He was noted to have hypertensive emergency on admission. BP 184/85 at approximately 11 AM with repeat 203/89 at 1400. One-time doses of metoprolol and amlodipine given as above. Patient is placed on a nitroglycerin drip to improve chest pain, will also affect BP. * Continue to monitor vital signs closely * Patient also to get nitroglycerin sublingual as needed * Will continue on beta angie and calcium channel angie while inpatient and upon discharge * Given other CAD risk factors likely, will add A1c and lipid profile * Lisinopril 10mg po qD added by Cardiology on 07/20 ICD Codes: I16.1 - Hypertensive emergency Status: Resolved (3) Fluids/Electrolytes/Nutrition/Prophylaxis Diagnosis: Secondary Plan: Fluids: PO hydration Electrolytes: monitor and replete as needed Nutrition: NPO DVT Prophylaxis: Early ambulation. Aspirin and Brilinta GI Prophylaxis: None indicated Status: Acute Consultants Dr. Argueta (cardiology) Procedures Cardiac catheterization 07/19 Brief History Patient is a 62-year-old male with history of HTN and HL who presents with SOB over the last three weeks and exertional chest pain since yesterday afternoon, BP 200/100s with headache, took his girlfriend's BP meds (clonidine) x 2 yesterday. Location mid-chest, non-radiating. No N/V, no LE edema. No blurry vision, headaches. Regarding HTN history, the meds "didn't agree with me" stopped taking anti-HTN meds. Due to headache and HTN symptoms, [facility] E[facility] performed, abnormal, sent to [place]. He currently has some mild midsternal chest pain at rest but no other symptoms. He is concerned that he will miss [employer] this week. CBC/BMP: 07/21/17 0851 07/21/17 0851 Significant Findings Laboratory Tests Test 07/19/17 11:00 07/19/17 14:00 07/19/17 14:20 07/19/17 20:13 Hemoglobin 17.3 GM/DL (13.0-17.0) 17.1 GM/DL (13.0-17.0) Platelet Count 144 TH/MM3 (150-450) 148 TH/MM3 (150-450) Eosinophils (%) (Auto) 4.6 % (0.0-4.0) Estimat Glomerular Filtration Rate 80 ML/MIN (>89) Troponin I 0.13 NG/ML (0.02-0.05) 0.20 NG/ML (0.02-0.05) Activated Partial Thromboplast Time 73.4 SEC (24.3-30.1) Test 07/20/17 02:17 07/21/17 08:51 White Blood Count 11.7 TH/MM3 (4.0-11.0) 12.3 TH/MM3 (4.0-11.0) Platelet Count 139 TH/MM3 (150-450) 146 TH/MM3 (150-450) Neutrophils (%) (Auto) 71.2 % (16.0-70.0) Neutrophils # (Auto) 8.4 TH/MM3 (1.8-7.7) Calcium Level 8.0 MG/DL (8.5-10.1) Aspartate Amino Transf (AST/SGOT) 43 U/L (15-37) 75 U/L (15-37) Anion Gap 4 MEQ/L (5-15) Estimat Glomerular Filtration Rate 82 ML/MIN (>89) 87 ML/MIN (>89) Total Creatine Kinase 333 U/L (39-308) Creatine Kinase MB 43.8 NG/ML (0.5-3.6) Creatine Kinase MB % 13.2 % (0.0-4.0) Troponin I 9.84 NG/ML (0.02-0.05) Triglycerides Level 290 MG/DL (42-150) Cholesterol Level 238 MG/DL (120-200) LDL Cholesterol 147 MG/DL (0-99) HDL Cholesterol 32.7 MG/DL (40.0-60.0) Hemoglobin 17.6 GM/DL (13.0-17.0) Neutrophils % (Manual) 72 % (16-70) Neutrophils # (Manual) 9.6 TH/MM3 (1.8-7.7) Myelocytes 1 % (0-0) Random Glucose 147 MG/DL (74-106) Imaging Last Impressions Chest X-Ray 07/19/17 1055 Signed Impressions: Service Date/Time: Wednesday, July 19, 2017 11:21 - CONCLUSION: Normal examination for a patient of this age. Mendez Romero MD PE at Discharge GENERAL: Well-nourished, well-developed obese male, sitting up in bed comfortably. SKIN: Warm and dry. 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 Atraumatic. EYES: No scleral icterus. No injection or drainage. EOMI. CARDIOVASCULAR: Regular rate and rhythm without murmurs, gallops, or rubs. 2+ pulses in the distal extremities bilaterally. RESPIRATORY: Distant breath sounds equal bilaterally without crackles or wheezes.. No accessory muscle use. GASTROINTESTINAL: Abdomen soft, obese non-tender, nondistended. Normal bowel sounds. EXTREMITIES: No cyanosis, or edema. NEUROLOGICAL: Awake, alert. Non-focal. Appropriate response to questioning. Hospital Course Patient presented to ED and was found to have NSTEMI and HTN emergency by troponin and EKG abnormalities. He had mild chest pain at this time. ASA loading occurred. Heparin gtt and nicardipine gtt initiated in ED. Cardiac catheterization performed by Dr. Argueta 07/19 showing critical stenosis of 2 vessels, and two drug-eluting stents were placed. Patient noted to have HTN and in addition to ACEI and BB, amlodipine was added for control. BP improved on this regimen. He was started on ASA, Brilinta for dual antiplatelet therapy. Lipid therapy initiated with LDL noted to be 147. A1c normal. Symptoms improved and pt stable for discharge 07/21. He is counseled on smoking cessation and agrees to change his lifesyle. He is discharged in stable condition. Pt Condition on Discharge: Stable Discharge Disposition: Discharge Home Discharge Instructions DIET: Follow Instructions for: Heart Healthy Diet Additional Diet Instructions: No strenuous activity. Return to work once released by MD Activities you can perform: See Additionl Instruction Follow up Referrals: Cardiology PCP Follow-up - 1 Week New Medications: Amlodipine (Norvasc) 5 Mg Tab 5 MG PO DAILY, #30 TAB Aspirin (Aspirin Low Strength) 81 Mg Chew 81 MG PO DAILY, #30 EA Atorvastatin (Atorvastatin) 40 Mg Tab 40 MG PO DAILY, #30 TAB Lisinopril (Lisinopril) 10 Mg Tab 10 MG PO DAILY, #30 TAB Metoprolol Tartrate (Metoprolol Tartrate) 25 Mg Tab 25 MG PO Q12HR, #60 TAB Ticagrelor (Brilinta) 90 Mg Tab 90 MG PO BID, #60 TAB Felisa Mullins MD R2 Jul 21, 2017 14:25
== END 2017-07-21 15:30 | disposition home or self-care (01) | DRG 247 ==
LOC: NEPE 10:26 → NEDA 12:47 → HIME 13:45 → N04A 07-20 20:05
PROVIDERS: ADMIT Family Medicine; ATTEND Family Medicine
PROC: B2111ZZ Fluoroscopy of Multiple Coronary Arteries using Low Osmolar Contrast (ICD-10-PCS; 2017-07-19)
PROC: B2151ZZ Fluoroscopy of Left Heart using Low Osmolar Contrast (ICD-10-PCS; 2017-07-19)
PROC: 4A023N7 Measurement of Cardiac Sampling and Pressure, Left Heart, Percutaneous Approach (ICD-10-PCS; 2017-07-19)
PROC: 027135Z Dilation of Coronary Artery, Two Arteries with Two Drug-eluting Intraluminal Devices, Percutaneous Approach (ICD-10-PCS; principal; 2017-07-19 14:45)
DX: I21.4 Non-ST elevation (NSTEMI) myocardial infarction (principal); Z68.41 Body mass index [BMI] 40.0-44.9, adult; I10 Essential (primary) hypertension; I16.1 Hypertensive emergency; E66.01 Morbid (severe) obesity due to excess calories; F17.210 Nicotine dependence, cigarettes, uncomplicated; N40.0 Benign prostatic hyperplasia without lower urinary tract symptoms; I25.10 Atherosclerotic heart disease of native coronary artery without angina pectoris; E78.5 Hyperlipidemia, unspecified; J44.9 Chronic obstructive pulmonary disease, unspecified
CPT/HCPCS: 71010; 80048; 80053; 80061; 80307; 81001; 82248; 82550; 82552; 83036; 83735; 84484; 85002; 85007; 85025; 85027; 85610; 85730; 87641; 92928; 92929; 93005; 93458; 94003; C1725; C1769; C1874; C1887; C1893; J1644; J2250; J2270; J3010; J7030; Q9967